=== PATIENT | female | born 1980 | race Caucasian/White ===

== ENCOUNTER 2019-04-13 09:10 | Emergency (ER) | payer SELFPAY ==
[~2019-04-13] VITALS: Ht 170.2 cm; Wt 82.4 kg
[~2019-04-13 09:10] MED LIST: IBUP800T48 PO; LEVO100T8; METH500T PO; PREN1TAB49
[2019-04-13 09:32] VITALS: BP 130/82; PULSE 81; RESP 18; Ht 170.2 cm; Wt 82.4 kg
[2019-04-13] MEDS ORDERED: METHOCARBAMOL 750 MG TAB PO ONE (10:30)
[2019-04-13] MEDS ORDERED: IBUPROFEN 800 MG TAB PO ONE (10:30)
== END 2019-04-13 11:27 | disposition home or self-care (01) ==
LOC: FTE 09:10
DX: M54.5 Low back pain (principal); E03.9 Hypothyroidism, unspecified
CPT/HCPCS: 72100; 81025